=== PATIENT | male | born 1930 | race Caucasian/White ===

== ENCOUNTER → 2017-04-30 | Outpatient (REF) ==
[~2017-04-30] MED LIST: ATEN25TA PO; CARB25TA PO; COUM7.5T PO; FISH1000 PO; INSULANT SC; LISI5TAB PO; METF500T PO; PRIL20CA PO; SERT-138 PO; novolin 70/30 SQ
[2017-04-30 08:54] LABS: MEAN CORPUSCULAR HEMOGLOBIN 25.9 pg (27.0-33.0); MEAN CORPUSCULAR HGB CONC 31.4 g/dl (32.0-36.5); MEAN CORPUSCULAR VOLUME 82.5 fl (80.0-96.0); PLATELET COUNT, AUTOMATED 247 10^3/uL (150-450); RED CELL DISTRIBUTION WIDTH 18.6 % (11.5-14.5); WHITE BLOOD COUNT 8.7 10^3/uL (4.0-10.0)
[2017-04-30 09:13] LABS: CALCIUM LEVEL 8.9 MG/DL (8.8-10.2); CREATININE FOR GFR 1.43 MG/DL (0.70-1.30); GLOMERULAR FILTRATION RATE 49.7 (>35); MAGNESIUM LEVEL 2.1 MG/DL (1.8-2.4); PERCENT SATURATION 6.7 % (19.7-50.0); POTASSIUM SERUM 4.5 MEQ/L (3.5-5.1)
== END ==
LOC: SKLAB2 07:30
DX: D64.9 Anemia, unspecified (principal)

== ENCOUNTER → 2017-05-08 | Outpatient (REF) ==
[2017-05-08 16:19] LABS: CALCIUM LEVEL 9.1 MG/DL (8.8-10.2); CREATININE FOR GFR 1.48 MG/DL (0.70-1.30); GLOMERULAR FILTRATION RATE 47.8 (>35); MAGNESIUM LEVEL 1.6 MG/DL (1.8-2.4); POTASSIUM SERUM 4.6 MEQ/L (3.5-5.1)
== END ==
LOC: SKLAB2 14:34
DX: R19.7 Diarrhea, unspecified (principal)

== ENCOUNTER → 2017-05-17 | Outpatient (REF) ==
[2017-05-17 09:28] LABS: CALCIUM LEVEL 9.3 MG/DL (8.8-10.2); CREATININE FOR GFR 1.34 MG/DL (0.70-1.30); GLOMERULAR FILTRATION RATE 53.6 (>35); MAGNESIUM LEVEL 1.7 MG/DL (1.8-2.4); POTASSIUM SERUM 4.2 MEQ/L (3.5-5.1)
== END ==
LOC: SKLAB2 08:00
DX: N18.9 Chronic kidney disease, unspecified (principal); E83.42 Hypomagnesemia

== ENCOUNTER 2017-05-24 06:12 | Inpatient (IN) | payer MEDICARE, OTHER ==
[~2017-05-24] VITALS: Ht 182.9 cm; Wt 102.0 kg
[2017-05-24 06:49] LABS: BASO % 0.4 % (0.0-1.0); EOS # 0.1 10^3/uL (0.0-0.50); EOS % 0.9 % (0.0-3.0); IMMATURE GRANULOCYTE % 0.8 % (0-0); LYMPH # 1.2 10^3/uL (1.5-4.5); MEAN CORPUSCULAR HEMOGLOBIN 26.1 pg (27.0-33.0); MEAN CORPUSCULAR VOLUME 81.6 fl (80.0-96.0); MONO # 0.8 10^3/uL (0.0-0.8); MONO % 7.4 % (0.0-5.0); NEUTROPHILS # 8.6 10^3/uL (1.8-7.7); NEUTROPHILS % 79.5 % (36.0-66.0); PLATELET COUNT, AUTOMATED 232 10^3/uL (150-450); RED CELL DISTRIBUTION WIDTH 18.1 % (11.5-14.5); WHITE BLOOD COUNT 10.8 10^3/uL (4.0-10.0)
[2017-05-24 06:54] LABS: INR 1.19
[2017-05-24 07:15] LABS: ALBUMIN 2.2 GM/DL (3.2-5.2); ALBUMIN/GLOBULIN RATIO 0.63 (1.00-1.93); BILIRUBIN,DIRECT 0.2 MG/DL (0.0-0.2); BILIRUBIN,TOTAL 0.5 MG/DL (0.2-1.0); CALCIUM LEVEL 9.4 MG/DL (8.8-10.2); CREATININE FOR GFR 1.68 MG/DL (0.70-1.30); GLOMERULAR FILTRATION RATE 41.3 (>35); THYROXINE (T4) 5.7 UG/DL (4.5-12.0); TOTAL PROTEIN 5.7 GM/DL (6.4-8.2)
[2017-05-24] MEDS ORDERED: NS 500 ML IV ONE (07:15)
[2017-05-24 07:32] LABS: ABG BASE EXCESS -5.3 (-2.0-2.0); ABG HCO3 17.9 MEQ/L (22.0-26.0); ABG PARTIAL PRESSURE CO2 26.9 mmHg (35.0-45.0); ABG PARTIAL PRESSURE O2 69.1 mmHg (75.0-100.0); ABG TOTAL CO2 18.7 MEQ/L (23.0-31.0)
[2017-05-24 07:32] LABS: POTASSIUM SERUM 5.9 MEQ/L (3.5-5.1)
[2017-05-24] MEDS ORDERED: NS 1,000 ML IV ONE (07:45)
[2017-05-24] MEDS ORDERED: PANTOPRAZOLE 40MG INJ (PROTONIX) (C9113) IV ONE (07:45)
--- NOTE | 2017-05-24 08:14 | REP ---
Clinical: Dyspnea. Comparison: 12/08/2012. Findings: Mediastinum and cardiac silhouette are stable. Evidence for prior sternotomy. Lung young demonstrate diffuse chronic interstitial changes with scattered calcified and noncalcified nodular densities. Subtle superimposed acute process cannot definitively be excluded. No definite effusion. No pneumothorax. Skeletal structures intact. Impression: Chronic interstitial changes. Cannot exclude subtle superimposed acute process. If the patient remains symptomatic consider chest CT for further investigation. Signed by Dusty Li MD 05/24/2017 08:05 A
[2017-05-24 08:18] VITALS: BP 110/53
[2017-05-24] MEDS ORDERED: TOUJ1.2I SC (08:25)
[2017-05-24] MEDS ORDERED: HYDR-3363 PO (08:25)
[2017-05-24] MEDS ORDERED: IMOD2TAB16 PO (08:25)
[2017-05-24] MEDS ORDERED: SERT25TA PO (08:25)
[2017-05-24] MEDS ORDERED: HUMA100I3 SC (08:25)
[2017-05-24] MEDS ORDERED: NEUR100C PO (08:25)
[2017-05-24] MEDS ORDERED: SCOPOLAMINE 1.5 MG TRANSDERMAL TD PRN (08:45)
[2017-05-24] MEDS ORDERED: BISACODYL 10 MG SUPP PR PRN (08:45)
[2017-05-24] MEDS ORDERED: ONDANSETRON 4MG/2ML VIAL (J2405) IV PRN (08:45)
[2017-05-24] MEDS ORDERED: ATROPINE SULFATE 1% OP SOLN 2 ML BTL SL PRN (08:45)
[2017-05-24] MEDS ORDERED: IPRATROPIUM 0.5MG/ALBUTEROL 2.5MG INH SOL UD 3ML (DUONEB)(J7620) NEB PRN (09:30)
[2017-05-24] MEDS ORDERED: IPRATROPIUM 0.5MG/ALBUTEROL 2.5MG INH SOL UD 3ML (DUONEB)(J7620) NEB ONE (09:30)
[2017-05-24] MEDS ORDERED: CARB25TA PO (09:41)
[2017-05-24] MEDS ORDERED: MILKSUS PO (09:41)
[2017-05-24] MEDS ORDERED: MAGN400T5 PO (09:41)
[2017-05-24] MEDS ORDERED: RANI150T PO (09:41)
[2017-05-24] MEDS ORDERED: NITR0.4S14 SL (09:41)
[2017-05-24] MEDS ORDERED: FLEEENE4 PR (09:41)
[2017-05-24] MEDS ORDERED: TYLE325T5 PO (09:41)
[2017-05-24] MEDS ORDERED: REFR1DRO6 OU (09:41)
[2017-05-24] MEDS ORDERED: PLAV1TAB2 PO (09:41)
[2017-05-24] MEDS ORDERED: GLUC1.2L PO (09:41)
[2017-05-24] MEDS ORDERED: VITA-121 PO (09:41)
[2017-05-24] MEDS ORDERED: DULC10SU2 PR (09:41)
[2017-05-24] MEDS ORDERED: LATA5OPD OU (09:41)
[2017-05-24] MEDS ORDERED: LISI-542 PO (09:41)
[2017-05-24] MEDS ORDERED: ENEMENE16 PR (09:41)
[2017-05-24] MEDS ORDERED: IPRASOL4 INH (09:41)
[2017-05-24] MEDS ORDERED: [UNRECOGNIZED DRUG - CODE] XX (09:45)
[2017-05-24] MEDS ORDERED: ANUC25SU PR (09:45)
[2017-05-24] MEDS ORDERED: MORPHINE 2 MG/ML 1ML SYRINGE IV ONE (10:00)
--- NOTE | 2017-05-24 10:23 | HPE ---
DATE OF ADMISSION: 05/24/2017 CHIEF COMPLAINT: Hematemesis. HISTORY OF PRESENT ILLNESS: This is an 87-year-old male with history of pulmonary embolism, previously on anticoagulation, hypertension, prostate cancer, melanoma, coronary artery disease (CAD), coronary artery bypass graft (CABG) in 1998, diabetes, dementia, and depression from [facility] who was found to have altered mental status for the past few days, not feeling well and was found to have dried blood around his mouth. The patient was found to have coffee ground emesis via nasogastric tube. In the emergency room, his systolic pressure was 100s. The patient's health care proxy has decided to continue with comfort measures only with no active treatment. The nasogastric tube was removed and no active intervention. The patient otherwise denies any bright red blood per rectum. He denies any melena. Complains of generalized weakness. No chest pain, pressure, tightness, shortness of breath. He has had decrease in appetite. No fevers or chills. Denies any rhinorrhea. The patient is hard of hearing at baseline. Otherwise review of systems is unremarkable. PAST MEDICAL HISTORY: 1. Melanoma. 2. Hypertension. 3. Diabetes. 4. CAD. 5. CABG. 6. Dementia. 7. Depression. 8. Reflux. 9. Parkinson's disease. PAST SURGICAL HISTORY: 1. Prostate surgery. 2. CABG. HOME MEDICATIONS: - acetaminophen 650 every 4 hours - nebulizer every 6 hours as needed - Dulcolax 10 as needed for constipation - carbidopa levodopa 1 tablet by mouth three times a day - vitamin D 1000 units daily - Plavix 75 daily - gabapentin 200 at bedtime - hydrocortisone 25 mg suppository - hydroxyzine 12.5 mg every 6 hours as needed for pruritus - sliding scale 12 units subcutaneous three times a day - latanoprost one drop both eyes - lisinopril 5 mg at bedtime - loperamide 2 mg as needed after each loose stool - magnesium oxide 400 three times a day - milk of magnesia 30 mL daily as needed - nitroglycerin 0.4 as needed - ranitidine 1 tablet by mouth twice a day - Sertraline 25 by mouth at bedtime - Fleet enema 1 enema daily as needed - Toujeo 50 units subcutaneous daily - Glucerna one liquid by mouth twice a day - Refresh 2 drops both eyes twice a day SOCIAL HISTORY: [facility] resident. Quit smoking in 1977. Denies alcohol or drug use. REVIEW OF SYSTEMS: Per history of present illness (HPI). ALLERGIES: PENICILLIN. PHYSICAL EXAMINATION: Temperature 97.1, pulse 80, respiratory rate 24, blood pressure 112/55, 96% on 2 liters nasal cannula. Generally, the patient is very hard of hearing, slightly demented, awake, alert, oriented to person only, moaning at the bedside. Pupils equal and reactive. Extraocular muscles are intact. Dry mucous membranes. Missing teeth and poor dentition. No jugular venous distention or thyromegaly. Lungs: Diminished breath sounds, bilateral wheezing. Heart: S1, S2. Sinus rhythm. Midline sternotomy scar well healed. Abdomen: Soft. Nontender. Nondistended. Positive bowel sounds. No rebound or guarding. Extremities: No cyanosis, clubbing. Skin: Warm, dry and well perfused, pink in color. Neurologically, awake, alert and oriented to person only. LABORATORY DATA: White count 10.8, hemoglobin 9, hematocrit 28, platelet count 232. Sodium 133, potassium 5.9, chloride 98, bicarbonate 22, BUN 84, creatinine 1.68, glucose 401, lactic acid 6.6, calcium 9.4, total bilirubin 0.5, direct bilirubin 0.2, AST 30, ALT 18, alkaline phosphatase 90, ammonia 83, total CK 69, MB fraction 3.1, troponin 0.56, albumin 2.2, TSH 1.23. ASSESSMENT AND PLAN: This is an 87-year-old male with prior history of pulmonary embolism (PE), CABG, CAD, hypertension, melanoma, prostate CA, diabetes, dementia, depression, reflux and Parkinson's disease who was brought in from [facility] due to complaints of generalized weakness and confusion as well as possible upper GI bleed with coffee ground emesis. The patient will be admitted as an inpatient for comfort measures only. DO NOT RESUSCITATE, DO NOT INTUBATE. ISSUES: 1. Acute upper GI bleed with coffee ground emesis. Hemoglobin and hematocrit (H and H) is stable. Vitals are stable, however, patient's family has decided not to proceed with interventions. Therefore, will keep comfort measures only. As needed Ativan, morphine, atropine and scopolamine patch. 2. History of CAD and CABG with abnormal cardiac markers. Patient is comfort measures only. Due to GI bleed, will not give aspirin at this time. 3. Acute kidney injury with hyperkalemia. Per the family, comfort measures only. No lab testing or interventions. 4. Anemia secondary to upper GI bleed. No intervention. Comfort measures only per the family. 5. Lactic acidosis. No intervention per the family. The patient is DO NOT RESUSCITATE, DO NOT INTUBATE. 6. Consult Patient and Family Service (PFS) regarding hospice.
[2017-05-24] MEDS: PANTOPRAZOLE SODIUM 40 MG in D5W 50 ML IV SCH ×2 (11:25→16:07)
[2017-05-24] MEDS: MORPHINE 2 MG/ML 1ML SYRINGE IV PRN ×3 (11:50→22:45)
[2017-05-24] MEDS: IPRATROPIUM 0.5MG/ALBUTEROL 2.5MG INH SOL UD 3ML (DUONEB)(J7620) NEB SCH ×3 (12:00→18:46)
[2017-05-24] MEDS: LORazepam 2 MG/ML VIAL (J2060) IV PRN ×2 (12:46→22:45)
--- NOTE | 2017-05-24 13:55 | ECGEPIP ---
Stationary ECG Study [facility] - ED Test Date: 2017-05-24 Pat Name: GOPI WINCHESTER Department: Room: [place] [address] Gender: M Patient Carrier: maria l : [id number] Requested By: Haylee Pinzon Order Number: [id number] Reading MD: Chan White Measurements Intervals [place] Rate: 84 P: 84 GA: 278 QRS: -7 QRSD: 112 T: 125 QT: 381 QTc: 452 Interpretive Statements SINUS RHYTHM WITH FIRST DEGREE AV BLOCK WITH FREQUENT SUPRAVENTRICULAR PREMATURE COMPLEXES SEPTAL MYOCARDIAL INFARCTION, PROBABLY OLD MODERATE T-WAVE ABNORMALITY, CONSIDER LATERAL ISCHEMIA Electronically Signed On 05-24-2017 13:54:52 EST by Chan White
[2017-05-24] MEDS ORDERED: PANTOPRAZOLE SODIUM 40 MG in D5W 50 ML IV SCH (21:30)
--- NOTE | 2017-05-25 03:16 | IPNPDOC ---
Text Note Date of Service The patient was seen on 05/25/17. NOTE Informed by Nurse that patient passed Family informed by Nurse Ramón HERNANDEZ I+O Ramón HERNANDEZ I+Thai Laboratory Tests 05/24/17 06:24 Red Blood Count 3.48 L, Mean Corpuscular Volume 81.6, Mean Corpuscular Hemoglobin 26.1 L, Mean Corpuscular Hemoglobin Concent 32.0, Red Cell Distribution Width 18.1 H, Neutrophils (%) (Auto) 79.5 H, Lymphocytes (%) (Auto ) 11.0 L, Monocytes (%) (Auto) 7.4 H, Eosinophils (%) (Auto) 0.9, Basophils (%) (Auto) 0.4, Neutrophils # (Auto) 8.6 H, Lymphocytes # (Auto) 1.2 L, Monocytes # (Auto) 0.8, Eosinophils # (Auto) 0.1, Basophils # (Auto) 0.0 Vital Signs Date Time Temp Pulse Resp B/P (MAP) Pulse Ox O2 Delivery O2 Flow Rate FiO2 05/24/17 08:18 90 26 110/53 (72) 89 Nasal Cannula 2.0 05/24/17 07:25 97.1 LENA MURILLO MD May 25, 2017 03:16
--- NOTE | 2017-05-25 17:08 | DSES ---
DATE OF ADMISSION: 05/24/2017 DATE OF DISCHARGE/: 05/25/2017 Patient 05/25/2017, he was comfort measures only from admission. DISCHARGE DIAGNOSES: 1. Hematemesis. 2. Probable upper gastrointestinal (GI) bleed. 3. Hyperkalemia. 4. Lactic acidosis. 5. Anemia secondary to acute blood loss. 6. Uncontrolled type 2 diabetes with hyperglycemia. 7. Hyponatremia. 8. Hepatic encephalopathy secondary to elevated ammonia level. 9. Acute on chronic renal failure. 10. Abnormal cardiac markers. HOSPITAL COURSE: This is an 87-year-old DO NOT RESUSCITATE/DO NOT INTUBATE male, had not been himself for the past few days according to the family, was found to have coffee ground emesis around the mouth, no bloody stools or black tarry stools, [facility], was brought into the emergency room for evaluation due to increasing confusion. Patient was found to have lactic acidosis, coffee ground emesis via nasogastric tube, generalized weakness. Family decided not to pursue any treatment or evaluation and was admitted for comfort measures only. He was found to have elevated ammonia level, hyperkalemia, and probable acute upper GI bleed. Per the family's decision of admission for comfort measures, no intervention was done and patient was admitted with as needed morphine and Ativan and atropine for terminal secretions. Patient on 05/25/2017, per nursing with family at the bedside. LABORATORY DATA ON DISCHARGE: White count 10.8, hemoglobin 9, hematocrit 28, platelet count 232. Sodium 133, potassium 5.9, chloride 98, bicarbonate 23, BUN 84, creatinine 1.68, glucose 401, lactic acid 6.6, calcium 9.4, total bilirubin 0.5, direct bilirubin 0.2, AST 30, ALT 18, alkaline phosphatase 90, ammonia 83, troponin 0.56, relative index 4.49, myoglobin 240, total CK 69, MB fraction of 3.1, albumin of 2.2, TSH 1.23, T3 uptake 41. Blood culture no growth. Chest x-ray 05/24/2017, shows chronic interstitial changes, cannot exclude subtle superimposed acute process. TIME SPENT ON DISCHARGE: 30 minutes.
== END 2017-05-25 00:35 | disposition expired | DRG 378 ==
LOC: EDBD 06:12 → M ED 06:12 → M ED INP 08:38 → M MSPAV 10:15
PROVIDERS: ADMIT General Practice; ATTEND General Practice
DX: K92.2 Gastrointestinal hemorrhage, unspecified (principal); N17.9 Acute kidney failure, unspecified; E87.2 Acidosis; D62 Acute posthemorrhagic anemia; E87.1 Hypo-osmolality and hyponatremia; I12.9 Hypertensive chronic kidney disease with stage 1 through stage 4 chronic kidney disease, or unspecified chronic kidney disease; E11.65 Type 2 diabetes mellitus with hyperglycemia; I25.10 Atherosclerotic heart disease of native coronary artery without angina pectoris; F03.90 Unspecified dementia, unspecified severity, without behavioral disturbance, psychotic disturbance, mood disturbance, and anxiety; Z51.5 Encounter for palliative care; Z66 Do not resuscitate; F32.9 Major depressive disorder, single episode, unspecified; K21.9 Gastro-esophageal reflux disease without esophagitis; G20 Parkinson's disease; K72.90 Hepatic failure, unspecified without coma; Z95.1 Presence of aortocoronary bypass graft; N18.9 Chronic kidney disease, unspecified; E87.5 Hyperkalemia; Z86.711 Personal history of pulmonary embolism; Z85.46 Personal history of malignant neoplasm of prostate; Z85.820 Personal history of malignant melanoma of skin; Z79.02 Long term (current) use of antithrombotics/antiplatelets; Z79.4 Long term (current) use of insulin; Z79.899 Other long term (current) drug therapy; Z88.0 Allergy status to penicillin